=== PATIENT | male | born 1955 | race African-American/Black ===

== ENCOUNTER 2022-05-02 22:37 | Emergency (ER) | payer SELFPAY ==
[2022-05-02 22:48] VITALS: BP 143/74; PULSE 74; RESP 20; TEMP 98.7
[2022-05-02 23:04] LABS: HEMOGLOBIN 12.7 G/dL (11.7-16.9); MCH 29.4 pg (25.7-33.7); MCHC 33.4 g/dl (32.0-35.9); MEAN CELL VOLUME 87.9 fl (80-96); MEAN PLT VOLUME 8.7 fl (7.5-11.1); PLATELET COUNT 224.3 10^3/uL (134-434); RBC 4.32 10^6/uL (4.00-5.60); RDW 15.1 % (11.9-15.9); WHITE BLOOD COUNT 9.2 10^3/uL (4.0-10.8)
[2022-05-02 23:17] LABS: INR 1.08 (0.83-1.09); PROTHROMBIN TIME (PATIENT) 12.4 SEC (9.7-13.0)
[2022-05-02 23:18] LABS: ALBUMIN 4.1 g/dl (3.4-5.0); BILIRUBIN,TOTAL 0.8 mg/dl (0.2-1); CALCIUM 9.6 mg/dl (8.5-10); CREATININE 1.2 mg/dl (0.55-1.3); TOT PROT 6.7 g/dl (6.4-8.2)
[2022-05-02 23:19] LABS: ACTIVATED PTT 34.6 SECONDS (25.2-36.5)
[2022-05-02] MEDS ORDERED: ASPIRIN 325 MG TABLET PO ONE (23:21)
[2022-05-02] MEDS ORDERED: ASPIRIN 325 MG TABLET ONE (23:27)
== END 2022-05-02 23:55 | disposition short-term general hospital (02) ==
LOC: FER 22:37
DX: I24.9 Acute ischemic heart disease, unspecified (principal)
CPT/HCPCS: 0241U-QW; 36415; 80053; 83880; 84484; 85027; 85610; 85730; 93005; 99285-25